=== PATIENT | male | born 1970 | race Caucasian/White ===

== ENCOUNTER 2019-01-19 14:43 | Emergency (ER) | payer MEDICARE, OTHER, MEDICAID | END 2019-01-19 15:54 | disposition home or self-care (01) | LOC: FTE 14:43 | DX: A63.0 Anogenital (venereal) warts (principal); L03.116 Cellulitis of left lower limb; L02.416 Cutaneous abscess of left lower limb; I10 Essential (primary) hypertension | CPT/HCPCS: 99283 ==